=== PATIENT | female | born 1940 | race Caucasian/White ===

== ENCOUNTER 2018-12-29 11:43 | Emergency (ER) | payer MEDICARE, OTHER ==
[2018-12-29] MEDS ORDERED: Sodium Chloride 0.9% 10 ML Syringe FLUSH PRN (11:54)
--- NOTE | 2018-12-29 12:07 | EDM.PDOC ---
ED HPI GENERAL MEDICAL PROBLEM - General Chief Complaint: Respiratory Problem Stated Complaint: SHORTNESS OF BREATH Time Seen by Provider: 12/29/18 11:56 Source of Information: Reports: Patient, Family History Limitations: Reports: No Limitations - History of Present Illness INITIAL COMMENTS - FREE TEXT/NARRATIVE: 78 YO WF presents to ER complaining of cough/congestion x 1 week with progressive shortness of breath over the last 4 days. Pt denies fever/chills, no orthopnea, no pedal edema. Pt reports dyspnea on exertion with associated lightheadedness without syncope. Pt denies chest pain or tightness in chest. Pt denies upper back pain, nausea/vomiting or diaphoresis. Pt with history of hypertension. Pt denies CAD, respiratory dz. Pt reports history of CAT in September and had preop clearance at that time. Duration: Week(s): (1) Location: Reports: Generalized Severity: Mild Improves with: Reports: Rest Worsens with: Reports: Breathing, Movement Associated Symptoms: Reports: Cough, Shortness of Breath. Denies: Chest Pain, cough w sputum, Diaphoresis, Fever/Chills, Headaches, Loss of Appetite, Malaise , Nausea/Vomiting, Rash, Seizure, Syncope, Weakness - Related Data Allergies Allergy/AdvReac Type Severity Reaction Status Date / Time No Known Drug Allergies Allergy Cannot Verified 12/29/18 12:35 Remember Home Meds: Home Meds Lisinopril 5 mg PO DAILY 12/29/18 [History] ED ROS GENERAL - Review of Systems Review Of Systems: See Below Constitutional: Reports: No Symptoms HEENT: Reports: Rhinitis Respiratory: Reports: Shortness of Breath, Cough. Denies: Wheezing, Pleuritic Chest Pain, Sputum, Hemoptysis Cardiovascular: Reports: Dyspnea on Exertion, Lightheadedness Endocrine: Reports: No Symptoms GI/Abdominal: Reports: No Symptoms : Reports: No Symptoms Musculoskeletal: Reports: No Symptoms Skin: Reports: No Symptoms Neurological: Reports: No Symptoms Psychiatric: Reports: No Symptoms Hematologic/Lymphatic: Reports: No Symptoms Immunologic: Reports: No Symptoms ED EXAM, GENERAL - Physical Exam Exam: See Below Exam Limited By: No Limitations General Appearance: Alert, WD/WN, No Apparent Distress Nose: Normal Inspection, Normal Mucosa, No Blood Throat/Mouth: Normal Inspection, Normal Lips, Normal Teeth, Normal Gums, Normal Oropharynx, Normal Voice, No Airway Compromise Head: Atraumatic, Normocephalic Neck: Normal Inspection, Supple, Non-Tender, Full Range of Motion Respiratory/Chest: No Respiratory Distress, Lungs Clear, Normal Breath Sounds, No Accessory Muscle Use, Chest Non-Tender Cardiovascular: Normal Peripheral Pulses, Regular Rate, Rhythm, No Edema, No Gallop, No JVD, No Murmur, No Rub GI/Abdominal: Normal Bowel Sounds, Soft, Non-Tender, No Organomegaly, No Distention, No Abnormal Bruit, No Mass Back Exam: Normal Inspection, Full Range of Motion, NT Extremities: Normal Inspection, Normal Range of Motion, Non-Tender, Normal Capillary Refill, No Pedal Edema Neurological: Alert, Oriented, CN II-XII Intact, Normal Cognition, Normal Gait, Normal Reflexes, No Motor/Sensory Deficits Psychiatric: Normal Affect, Normal Mood Skin Exam: Warm, Dry, Intact, Normal Color, No Rash Lymphatic: No Adenopathy EKG INTERPRETATION EKG Date: 12/29/18 Time: 12:44 Rhythm: NSR Rate (Beats/Min): 87 [place]: Normal P-Wave: Present QRS: Normal ST-T: Normal QT: Prolonged Comparison: NA - No Prior EKG Course - Vital Signs Last Recorded V/S: Last Vital Signs Temp 36.2 C 12/29/18 11:50 Pulse 100 12/29/18 11:50 Resp 20 12/29/18 11:50 BP 149/82 H 12/29/18 11:50 Pulse Ox 88 L 12/29/18 11:50 - Orders/Labs/Meds Orders: Active Orders 24 hr Category Date Time Status Cardiac Monitoring [RC] . DIRECTED Care 12/29/18 11:54 Active EKG Documentation Completion [RC] ASDIRECTED Care 12/29/18 11:55 Active Peripheral IV Care [RC] . DIRECTED Care 12/29/18 11:55 Active Chest 2V [CR] Stat Exams 12/29/18 11:54 Ordered Sodium Chloride 0.9% [Saline Flush] Med 12/29/18 11:54 Active 10 ml FLUSH Q8HR PRN Peripheral IV Insertion Adult [OM.PC] Routine Oth 12/29/18 11:54 Ordered EKG 12 Lead [EK] Routine Ther 12/29/18 11:54 Ordered Medication Orders Sodium Chloride (Saline Flush) 10 ml FLUSH Q8HR PRN PRN Reason: keep vein open Labs: Laboratory Tests 12/29/18 12/29/18 Range/Units 12:10 12:10 WBC 10.67 H (5.00-10.00) 10^3/uL RBC 4.87 (3.80-5.50) 10^6/uL Hgb 14.7 (12.0-16.0) g/dL Hct 43.5 (37.0-47.0) % MCV 89.3 (82.0-92.0) fL MCH 30.2 (27.0-31.0) pg MCHC 33.8 (32.0-36.0) g/dL RDW 12.5 (11.5-14.5) % Plt Count 296 (150-400) 10^3/uL MPV 9.7 (7.4-10.4) fL Immature Gran % (Auto) 0.3 (0.0-5.0) % Neut % (Auto) 72.5 H (50.0-70.0) % Lymph % (Auto) 18.4 L (20.0-40.0) % Coleman % (Auto) 7.5 (2.0-8.0) % Eos % (Auto) 0.8 L (1.0-3.0) % Baso % (Auto) 0.5 (0.0-1.0) % Immature Gran # (Auto) 0.03 (0.00-0.50) 10^3/uL Neut # (Auto) 7.74 H (2.50-7.00) 10^3/uL Lymph # (Auto) 1.96 (1.00-4.00) 10^3/uL Coleman # (Auto) 0.80 (0.10-0.80) 10^3/uL Eos # (Auto) 0.09 L (0.10-0.30) 10^3/uL Baso # (Auto) 0.05 (0.00-0.10) 10^3/uL Sodium 141 (136-145) mmol/L Potassium 4.4 (3.3-5.3) mmol/L Chloride 103 (98-115) mmol/L Carbon Dioxide 22.6 (21.0-32.0) mmol/L Anion Gap 19.8 H (5-15) mmol/L BUN 18 (6-25) mg/dL Creatinine 0.93 (0.51-1.17) mg/dL Est Cr Clr Drug Dosing 49.26 mL/min Estimated GFR (MDRD) 58 mL/min Glucose 127 H (75 - 99) mg/dL Calcium 9.7 (8.7-10.3) mg/dL Total Bilirubin 0.4 (0.2-1.0) mg/dL AST 28 (15-37) U/L ALT 39 (12-78) U/L Alkaline Phosphatase 123 H (46-116) IU/L Creatine Kinase 52 (26-276) U/L CK-MB (CK-2) 1.50 (0.00-4.30) ng/mL Troponin I 0.21 H* (0.00-0.070) ng/mL B-Natriuretic Peptide 397 H (0-100) pg/mL Total Protein 7.1 (6.4-8.2) g/dL Albumin 3.33 (3.00-4.80) g/dL Meds: Medications Generic Name Dose Route Start Last Admin Trade Name Freq PRN Reason Stop Dose Admin Sodium Chloride 10 ml 12/29/18 11:54 Saline Flush FLUSH Q8HR PRN keep vein open Discontinued Medications Generic Name Dose Route Start Last Admin Trade Name Freq PRN Reason Stop Dose Admin Aspirin 324 mg 12/29/18 12:58 Aspirin PO 12/29/18 12:59 ONETIME ONE Nitroglycerin 1 gm 12/29/18 12:58 Nitro-Bid 2% TOP 12/29/18 12:59 ONETIME ONE - Radiology Interpretation Free Text/Narrative:: CXR- NAD Departure - Departure Time of Disposition: 12:58 Disposition: DC/Tfer to Acute Hospital 02 Condition: Fair Clinical Impression: Dyspnea on exertion, Elevated troponin I level - Discharge Information Referrals: Nell Elena, [facility]INGER [Primary Care Provider] - Forms: ED Department Discharge, Interfacility Transfer EMTALA - My Orders Last 24 Hours: My Active Orders 12/29/18 11:54 Cardiac Monitoring [RC] . DIRECTED Chest 2V [CR] Stat Sodium Chloride 0.9% [Saline Flush] 10 ml FLUSH Q8HR PRN Peripheral IV Insertion Adult [OM.PC] Routine EKG 12 Lead [EK] Routine 12/29/18 11:55 EKG Documentation Completion [RC] ASDIRECTED Peripheral IV Care [RC] . DIRECTED - Assessment/Plan Last 24 Hours: My Active Orders 12/29/18 11:54 Cardiac Monitoring [RC] . DIRECTED Chest 2V [CR] Stat Sodium Chloride 0.9% [Saline Flush] 10 ml FLUSH Q8HR PRN Peripheral IV Insertion Adult [OM.PC] Routine EKG 12 Lead [EK] Routine 12/29/18 11:55 EKG Documentation Completion [RC] ASDIRECTED Peripheral IV Care [RC] . DIRECTED Assessment:: 1. Dyspnea on exertion 2. elevated Trop I Plan: 1. Transfer to higher level of care- [facility] 2. ASA 324mg now 3. nitropaste 1" to chest wall 4. supportive care and oxygen as needed
[2018-12-29 12:47] LABS: ANION GAP 19.8 mmol/L (5-15)
[2018-12-29] MEDS ORDERED: Nitroglycerin 2% Oint 1 GM UD Packet TOP ONE (12:58)
[2018-12-29] MEDS ORDERED: Aspirin 81 MG Tab.Chew PO ONE (12:58)
--- NOTE | 2018-12-29 13:50 | CR ---
[id number] RAD/RAD Chest PA And Lateral EXAM: RAD Chest PA And Lateral INDICATION: SHORTNESS OF BREATH. COMPARISON: None. DISCUSSION: Cardiomediastinal silhouette is normal in size and contour. No infiltrate, effusion, pneumothorax, or edema. IMPRESSION: No acute findings. Max Collins MD 12/29/18 [id number] Thank you for allowing us to participate in the care of your patient.
== END 2018-12-29 14:00 ==
LOC: KA.ED 11:43
DX: R07.1 Chest pain on breathing (principal); R79.89 Other specified abnormal findings of blood chemistry
CPT/HCPCS: 36415; 71046; 80053; 82550; 82553; 83880; 84484; 85025; 99285; A9270; 93005

== ENCOUNTER 2021-03-25 15:13 | Inpatient (IN) | payer MEDICARE, OTHER ==
[2021-03-25 16:01] LABS: ANION GAP 16.8 mmol/L (5-15)
[2021-03-25] MEDS ORDERED: Aspirin 81 MG Tab.Chew PO ONE (16:05)
[2021-03-25] MEDS ORDERED: Heparin Sodium 5,000 Units/ML Vial IVPUSH ONE (16:48)
[2021-03-25] MEDS ORDERED: Heparin Sodium/D5W 250 ML IV SCH (17:00)
[2021-03-25] MEDS: Heparin Sodium/D5W 250 ML IV SCH (17:02)
[2021-03-25] MEDS ORDERED: Sodium Chloride 0.9% 100 ML IV SCH (19:15)
[2021-03-25] MEDS ORDERED: Iopamidol 755 Mg/ML 100 ML Bottle IV ONE (19:15)
[2021-03-25] MEDS ORDERED: Lisinopril 5 MG Tab PO ONE (21:46)
[2021-03-26] MEDS: Heparin Sodium/D5W 250 ML IV SCH (08:53)
== END 2021-03-26 12:55 | DRG 280 ==
LOC: KA.ED 15:13 → KA.MS 17:57
PROVIDERS: ADMIT Student in an Organized Health Care Education/Training Program; ATTEND Student in an Organized Health Care Education/Training Program
DX: I26.99 Other pulmonary embolism without acute cor pulmonale (principal); I21.4 Non-ST elevation (NSTEMI) myocardial infarction; H54.7 Unspecified visual loss; I10 Essential (primary) hypertension; Z79.899 Other long term (current) drug therapy; I26.92 Saddle embolus of pulmonary artery without acute cor pulmonale; Z96.641 Presence of right artificial hip joint; M51.36 Other intervertebral disc degeneration, lumbar region; I11.9 Hypertensive heart disease without heart failure; Z20.822 Contact with and (suspected) exposure to COVID-19; E66.9 Obesity, unspecified; Z68.34 Body mass index [BMI] 34.0-34.9, adult; Z98.42 Cataract extraction status, left eye; Z98.41 Cataract extraction status, right eye; Z90.89 Acquired absence of other organs; Z98.890 Other specified postprocedural states
CPT/HCPCS: 36415; 71275; 80053; 84484; 85025; 85379; 85730; A9270; J1644 ×2; U0002; 93005; 96365; 99285-25; Q9967

== ENCOUNTER 2021-07-20 17:32 | Emergency (ER) | payer MEDICARE, OTHER ==
[2021-07-20 18:21] LABS: ANION GAP 15.1 mmol/L (5-15)
[2021-07-20 19:15] VITALS: BP 167/86; PULSE 78
== END 2021-07-20 19:00 | disposition home or self-care (01) ==
LOC: KA.ED 17:32
DX: I49.3 Ventricular premature depolarization (principal); R42 Dizziness and giddiness; R06.02 Shortness of breath; I10 Essential (primary) hypertension; E66.9 Obesity, unspecified; Z68.33 Body mass index [BMI] 33.0-33.9, adult; Z79.899 Other long term (current) drug therapy; Z79.01 Long term (current) use of anticoagulants
CPT/HCPCS: 36415; 71045; 80053; 83880; 84484; 85025; 93005; 93010; 99284; 99284-25

== ENCOUNTER 2021-12-23 09:30 | Emergency (ER) | payer MEDICARE, OTHER ==
[2022-01-09 11:45] LABS: ANION GAP 13.8 mmol/L (5-15); CHLORIDE,CL 103 mmol/L (98-115); ESTIMATED GFR 68 mL/min (>=60); SODIUM,NA 138 mmol/L (136-145)
== END 2021-12-23 11:06 ==
LOC: KA.ED 09:30
DX: R00.2 Palpitations (principal); R42 Dizziness and giddiness
CPT/HCPCS: 36415; 80053; 84484; 85025; 85379; 93005; 99285